=== PATIENT | male | born 1995 | race Hispanic/Latino ===

== ENCOUNTER 2018-05-01 16:02 | Inpatient (IN) | payer OTHER ==
[~2018-05-01 16:02] MED LIST: ISOVUE-370 76%-LOCM 1 ML ONE
[2018-05-01] MEDS ORDERED: Lidocaine 1% (PF) 30 ML VIAL ONE (16:13)
[2018-05-01] MEDS ORDERED: Adacel (T-DAP) 0.5 ML SYRINGE ONE (16:28)
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
[2018-05-01] MEDS ORDERED: Ketorolac Tromethamine 30 MG/ML VIAL ONE (16:33)
[2018-05-01] MEDS ORDERED: Fentanyl 100 MCG/2 ML VIAL ONE (16:33)
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
[2018-05-01 17:01] LABS: #Eosinphils 0.1 thou/uL (0.0-0.7); #Lymphocytes 1.8 thou/uL (1.20-3.40); #Monocytes 0.8 thou/uL (0.11-0.59); #Neutrophils 14.3 thou/uL (1.40-6.50); %Basophils 0.1 % (0.0-1.0); %Eosinophils 0.5 % (0.0-10.0); %Lymphocytes 10.5 % (21.0-51.0); %Monocytes 4.4 % (0.0-10.0); %Neutrophils 84.4 % (42.0-75.0); Hemoglobin 15.7 g/dL (14.0-18.0); Mean Corpuscular HGB CONC 33.3 g/dL (32.0-36.0); Mean Corpuscular Hemoglobin 30.8 pg (27.0-31.0); Mean Corpuscular Volume 92.3 fL (78.0-98.0); Platelet Count 326 thou/uL (130-400); RBC Distribution Width 11.3 % (11.5-14.5); Red Blood Cell (RBC) Count 5.09 mill/uL (4.70-6.10)
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
[2018-05-01 17:14] LABS: ALT (SGPT) 36 U/L (8-55); AST (SGOT) 34 U/L (5-34); Albumin 4.4 g/dL (3.5-5.0); Alkaline Phosphatase 82 U/L (40-150); Anion Gap 12 mmol/L (10-20); BUN (Urea Nitrogen) 11 mg/dL (8.9-20.6); Bilirubin, Total 0.6 mg/dL (0.2-1.2); Calc. Creatinine Clearance 0 mL/min (70-130); Calcium 9.5 mg/dL (7.8-10.44); Carbon Dioxide 26 mmol/L (22-29); Chloride 104 mmol/L (98-107); Estimated GFR-MDRD 89; Globulin 2.6 g/dL (2.4-3.5); Glucose 111 mg/dL (70-105); Potassium 3.8 mmol/L (3.5-5.1); Sodium 138 mmol/L (136-145)
[2018-05-01] MEDS ORDERED: CEFAZOLIN 1 GM VIAL ONE (17:26)
--- NOTE | 2018-05-01 18:16 | CT ---
RIGHT FOOT CT EVALUATION WITHOUT CONTRAST: 05/01/18 FINDINGS: There is a nondisplaced posterior malleolar fracture of the distal tibia. There is dorsal dislocation of the great toe MTP joint. There is a small minimally invasive avulsion fracture involving the fibu lar base right great toe distal phalanx. There is an obliquely oriented angulated fracture involving the second digit metatarsal neck. There is an obliquely oriented mildly displaced fracture involving the plantar medial base of the second digit. This is in the expected region of the Lisfranc ligament attachment. There is a small avulsion fracture involving the dorsal lateral cuboid. Lisfranc alignmen t appears preserved. IMPRESSION: 1. Dorsal dislocation great toe MTP joint. 2. Small obliquely oriented fracture involving the plantar medial base of the second metatarsal in the expected attachment location of the plantar band of the Lisfranc ligament. Followup nonemergen t MR of the right foot may be helpful to evaluate the injury further. 3. Small avulsion fracture involving the dorsal lateral aspect of the distal cuboid. 4. Obliquely oriented fracture involving the second metatarsal neck. 5. Small avulsion fracture involving the fibular base of the great toe distal phalanx. 6. Posterior malleolus fracture of the distal tibia. POS: [facility]
[2018-05-01] MEDS ORDERED: Midazolam HCl 2 mg/2 ml Vial ONE (18:28)
[2018-05-01 18:52] LABS: Bilirubin Negative (Negative); Blood, Urine Large (Negative); Clarity CLOUDY (Clear); Glucose, Urine (Dipstick) Negative (Negative); Leukocyte Small (Negative); Nitrite Negative (Negative); Protein, Urine (Dipstick) Trace mg/dL (Neg-Trace); Specific Gravity, Urine 1.044 (1.002-1.036); Urobilinogen 0.2 mg/dL (0.2-1.0); pH, Urine 7.5 (5.0-9.0)
[2018-05-01 18:55] LABS: Bacteria/HPF None Seen HPF (None Seen); Hyaline Casts/LPF 0-3 HYALINE CAST LPF (0-3 Hyaline); RBC/HPF GREATER THAN 50-TNTC HPF (0-3); Squamous Epithelial 0-3 HPF (0-3); WBC/HPF 21-50 HPF (0-3)
--- NOTE | 2018-05-01 19:19 | RAD ---
RADIOGRAPH RIGHT FOOT 2 VIEW: 05/01/18 at 6:59 p.m. HISTORY: 22-year-old male status post reduction of fracture-dislocation. COMPARISON: 05/01/18, 4:28 p.m. FINDINGS: The MTP joint is now located. The angulated fracture at the neck of the second metatarsal is unchange d. There is a plantar splint, which obscures fine bony detail. Currently there is no dislocation. A m inimally displaced posterior malleolar fracture of the distal tibia is now visible. IMPRESSION: 1. Interval successful reduction of the dislocated first metatarsophalangeal joint. 2. Angulated acute fracture of distal metaphysis of second metatarsal. 3. Minimally displaced posterior malleolar fracture. POS: [facility]
[2018-05-01] MEDS ORDERED: Dextrose 5% in Water 1,000 ML IV PRN (19:33)
[2018-05-01] MEDS ORDERED: hydrALAZINE 20 MG/ML VIAL SLOW IVP PRN (19:33)
[2018-05-01] MEDS ORDERED: Ondansetron ODT 4 MG TAB PO PRN (19:33)
[2018-05-01] MEDS ORDERED: Morphine 4 MG/ML VIAL SLOW IVP PRN (19:33)
[2018-05-01] MEDS ORDERED: Dextrose 50% Abboject 50 ML SYRINGE SLOW IVP PRN (19:33)
[2018-05-01] MEDS ORDERED: traMADol HCl 50 MG TAB PO PRN (19:39)
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
[2018-05-01] MEDS: traMADol HCl 50 MG TAB PO SCH (21:23)
[2018-05-01] MEDS: Acetaminophen 500 MG TAB PO SCH (21:24)
[2018-05-01] MEDS: Ibuprofen 800 MG TAB PO SCH (21:24)
[2018-05-02 01:24] VITALS: BMI 30.1
[2018-05-02] MEDS: Acetaminophen 500 MG TAB PO SCH ×4 (03:16→20:16)
[2018-05-02] MEDS: traMADol HCl 50 MG TAB PO SCH ×4 (03:16→20:16)
[2018-05-02] MEDS: Ibuprofen 800 MG TAB PO SCH ×3 (06:02→21:18)
[2018-05-02 08:00] LABS: #Lymphocytes 1.4 thou/uL (1.20-3.40); #Monocytes 0.7 thou/uL (0.11-0.59); #Neutrophils 9.2 thou/uL (1.40-6.50); %Basophils 0.4 % (0.0-1.0); %Eosinophils 0.4 % (0.0-10.0); %Lymphocytes 12.1 % (21.0-51.0); %Monocytes 6.2 % (0.0-10.0); Mean Corpuscular HGB CONC 33.8 g/dL (32.0-36.0); Mean Corpuscular Hemoglobin 30.8 pg (27.0-31.0); Mean Corpuscular Volume 91.1 fL (78.0-98.0); Mean Platelet Volume 7.2 fL (7.4-10.4); Platelet Count 283 thou/uL (130-400); RBC Distribution Width 11.4 % (11.5-14.5); Red Blood Cell (RBC) Count 4.55 mill/uL (4.70-6.10); White Blood Cell (WBC) Count 11.3 thou/uL (4.8-10.8)
[2018-05-02 08:20] LABS: Anion Gap 12 mmol/L (10-20); BUN (Urea Nitrogen) 8 mg/dL (8.9-20.6); Calc. Creatinine Clearance 167 mL/min (70-130); Calcium 9.1 mg/dL (7.8-10.44); Carbon Dioxide 24 mmol/L (22-29); Chloride 105 mmol/L (98-107); Estimated GFR-MDRD Greater than 90; Glucose 115 mg/dL (70-105); Potassium 3.6 mmol/L (3.5-5.1); Sodium 137 mmol/L (136-145)
--- NOTE | 2018-05-02 13:22 | RAD ---
SINGLE VIEW OF THE PELVIS: COMPARISON: CT of the abdomen/pelvis 05/01/2018. HISTORY: Pelvic pain and fracture. FINDINGS: A single view of the pelvis shows a lucency extending through the left hip which corresponds to the n ondisplaced left acetabular fracture seen on prior CT. No dislocation is seen. No degenerative tejeda ges are present. IMPRESSION: Left nondisplaced acetabular fracture. POS: [facility]
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
[2018-05-02] MEDS ORDERED: Ondansetron PF 4 MG/2 ML Vial IVP PRN (16:14)
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
[2018-05-03] MEDS: Acetaminophen 500 MG TAB PO SCH ×2 (03:10→08:28)
[2018-05-03] MEDS: traMADol HCl 50 MG TAB PO SCH ×2 (03:10→08:28)
[2018-05-03] MEDS: Ibuprofen 800 MG TAB PO SCH (05:22)
[2018-05-03 12:40] VITALS: TEMP 98.6
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
[2018-05-03 16:30] VITALS: BP 130/70
== END 2018-05-03 17:31 | disposition home or self-care (01) | DRG 562 ==
LOC: ERS 16:02 → SJJU 20:40
PROVIDERS: ADMIT Surgery; ATTEND Surgery
DX: S92.491A Other fracture of right great toe, initial encounter for closed fracture (principal); S32.402A Unspecified fracture of left acetabulum, initial encounter for closed fracture; S92.321A Displaced fracture of second metatarsal bone, right foot, initial encounter for closed fracture; S82.891A Other fracture of right lower leg, initial encounter for closed fracture; S01.81XA Laceration without foreign body of other part of head, initial encounter; V47.6XXA Car passenger injured in collision with fixed or stationary object in traffic accident, initial encounter; Y92.410 Unspecified street and highway as the place of occurrence of the external cause
CPT/HCPCS: 36415; 70450; 71045; 72170; 74177; 80048; 80053; 81003; 81015; 84484; 85025; 87086; 87491; 87591; 90715; G0390; J0690; J1885; J2001; J2250; J2405; J3010; Q0162; Q9966